=== PATIENT | female | born 1995 | race Caucasian/White ===

== ENCOUNTER 2019-04-22 09:46 | Day surgery (SDC) | payer OTHER ==
[~2019-04-22] VITALS: Ht 160 cm; Wt 65.3 kg
[~2019-04-22 09:46] MED LIST: ETHINYL ESTRADIOL; NORELGESTROMIN
[2019-04-22 10:39] LABS: HEMATOCRIT 43.9 % (36.0-48.0); HEMOGLOBIN 14.5 g/dL (12-16); MCH 29.7 pg (26.0-34.0); MEAN PLATELET VOLUME 10.1 fL (7.4-10.4); RBC 4.88 10x6/uL (4.00-5.40); RDW 12.1 % (11.5-14.5); WBC 6.3 10x3/uL (4.8-10.8)
[2019-04-22 11:11] VITALS: BP 111/64; Ht 160 cm; Wt 65.3 kg
[2019-04-22 11:19] LABS: HCG URINE NEGATIVE (NEGATIVE)
--- NOTE | 2019-04-22 14:47 | NUR ---
1442 - CONSULTED WITH ELIZABETH IVY CRNA FOR HEART RATE IN LOW 40'S. NO ORDERS RECEIVED, CURRENT BP AND MAP OK PER HIM. D/C TO OUTPT PER HIM.
--- NOTE | 2019-04-25 09:20 | HP ---
PATIENT: PANKAJ FAIR MEDICAL RECORD: [id number] ACCOUNT: [id number] LOCATION:[facility] : 94 ADMISSION DATE: 04/22/19 PCP: ODALIS LEYVA MD HISTORY AND PHYSICAL EXAMINATION PREOPERATIVE HISTORY AND PHYSICAL HISTORY OF PRESENT ILLNESS: Pankaj is 23 years old. She has been having chronic problems with tonsillitis and tonsillar hypertrophy. She has been admitted for tonsillectomy. PAST MEDICAL HISTORY: Ectopic . CURRENT MEDICATIONS: Oral contraceptive. ALLERGIES: No known drug allergies. PHYSICAL EXAMINATION: GENERAL: She is a healthy-appearing, developmentally normal. FACE: Normal, symmetric, no lesions. EYES: Sclerae and conjunctivae are normal. EARS: Canals and TMs normal. NOSE: No mass, polyps or drainage. ORAL CAVITY AND OROPHARYNX: 4+ kissing tonsils with caseous tonsils bilaterally. NECK: No masses, no adenopathy. CHEST: Clear. CARDIOVASCULAR: Regular rate and rhythm, no murmur. EXTREMITIES: Normal. IMPRESSION: Tonsillar hypertrophy and chronic caseous tonsillitis. PLAN: Tonsillectomy. TRANSINT:[id number] Voice Confirmation ID: [id number] DOCUMENT ID: [id number] STEVEN NOONAN MD at 0920 CC: [id number] DICTATION DATE: 04/20/19 1521 ANALOG DEVICE DESIGNER: 04/20/19 1546 [facility] 04/22/19 [id number] [place] [address]
--- NOTE | 2019-04-25 09:20 | OP ---
PATIENT NAME: PANKAJ FAIR MEDICAL RECORD: [id number] :[birth year] LOCATION:[facility] ADMISSION DATE: SURGEON: STEVEN BARTH MD DATE OF OPERATION: 04/22/2019 PREOPERATIVE DIAGNOSIS: Chronic tonsillitis. POSTOPERATIVE DIAGNOSIS: Chronic tonsillitis. PROCEDURE: Tonsillectomy. SURGEON: Steven Barth MD ANESTHESIA: General orotracheal. BLOOD LOSS: 5 cc. SPECIMENS: Right and left tonsil. COMPLICATIONS: None. DISPOSITION: Recovery stable. PROCEDURE NOTE: She was brought to operating room and placed in supine position, sedated and intubated by anesthesia. The eyes were taped. Table was turned 90 degrees. Head drapes were applied and she was positioned for tonsillectomy. Using a headlight, a Lance-Bertin mouth gag was carefully inserted and elevated on a towel on his chest. The palate was examined and palpated. It was normal. A red rubber catheter was placed to the right side of the nose and pharynx was grasped with tonsil clamp to retract the soft palate. Using a mirror, nasopharynx examined. Suction cautery was used to evacuate secretions. There was really no significant adenoid tissue. The choanae and eustachian orifices were normal bilaterally. The red rubber catheter was let down and removed. The right tonsil was grasped at superior pole with a straight Allis clamp. She has very large tonsils and lots of tonsilliths. A special tip cautery on a setting of 8 was used to dissect out the tonsil along its capsule, preserving the anterior and posterior tonsillar pillar. The left tonsil was removed in the same fashion. Then, both sides of the nose were irrigated with saline. The pharynx was suctioned. Tonsillar fossae were agitated. Suction cautery on a setting of 18 was used to control minimal oozing. With the field clean and dry, she was awakened, extubated, and transported to recovery in good condition. No complications. TRANSINT:[id number] Voice Confirmation ID: [id number] DOCUMENT ID: [id number] STEVEN BARTH MD at 0920 CC: [id number] DICTATION DATE: 04/22/19 143 PLASTERER ROUGH: 04/22/192012 [facility] 04/22/19 [facility] [address] [place] [address]
== END 2019-04-22 16:13 | disposition home or self-care (01) ==
LOC: D.OPS 09:46 → D.PAN 12:05 → D.OPS 12:15 → D.PAN 12:20 → D.OPS 12:30
PROVIDERS: Anesthesiology; ATTEND Otolaryngology
DX: J35.01 Chronic tonsillitis (principal)